=== PATIENT | female | born 1990 | race Caucasian/White ===

== ENCOUNTER 2017-09-05 17:32 | Emergency (ER) | payer OTHER ==
[2017-09-05] MEDS ORDERED: Ibuprofen TAB* 800 MG PO ONE (18:59)
[2017-09-05 19:24] LABS: Urine Appearance Clear; Urine Blood Negative (Negative); Urine Color Yellow; Urine Ketones Trace (Negative); Urine Protein Negative (Negative); Urine Specific Gravity 1.017 (1.010-1.030); Urine Urobilinogen Negative (Negative)
--- NOTE | 2017-09-05 20:12 | RAD ---
Indication: Pelvic pain. Real-time sonography of the pelvis was performed. The study was performed utilizing endovaginal technique. The uterus measures 7.7 x 3.7 x 4.7 cm. Endometrial echo measures 7.4 mm. The right ovary measures 4.6 x 2.3 x 2.9 cm. Follicles are noted in the right ovary. Involuting cyst measuring up to 2.2 cm is noted in the right ovary. The left ovary measures 3.2 x 2.1 x 1.8 cm. 1.4 cm follicle in the left ovary. Moderate amount of free fluid is noted in the cul-de-sac. IMPRESSION: Involuting cyst right ovary. Moderate amount of free fluid is noted in the cul-de-sac.
[2017-09-05 21:25] VITALS: BP 104/60
--- NOTE | 2017-09-17 14:10 | ED ---
Hector Nolan Stephanie, scribed for Dominic Durham MD on 09/05/17 at 2119 . Abdominal Pain/Female - HPI Summary HPI Summary: The pt is a 27 y/o F presenting to the ED with c/o lower abd pain that began yesterday. The pt states that the pain became sever overnight in the R side of her abdomen but reduced this morning. LKMP was 2 weeks ago. The abd pain is rated as a 5 in severity. The pt denies bleeding or vaginal discharge. The pt has a hx of ovarian cysts. - History of Current Complaint Chief Complaint: EDAbdPain Stated Complaint: ABD PAIN Time Seen by Provider: 09/05/17 18:50 Hx Obtained From: Patient Onset/Duration: Sudden Onset, Lasting Days - 1, Still Present Timing: Constant Severity Currently: Mild Pain Intensity: 4 Pain Scale Used: 0-10 Numeric Location: Discrete At: RLQ Radiates: No Aggravating Factor(s): Nothing Alleviating Factor(s): Nothing Associated Signs and Symptoms: Negative: Vaginal Bleeding, Vaginal Discharge Allergies/Adverse Reactions: Allergies Allergy/AdvReac Type Severity Reaction Status Date / Time Acetaminophen Allergy Anaphylatic Verified 09/05/17 17:51 [From Oxycodone Shock W/Acetaminophen] Oxycodone Allergy Anaphylatic Verified 09/05/17 17:51 [From Oxycodone Shock W/Acetaminophen] Sulfa Antibiotics Allergy Rash Verified 09/05/17 17:51 PMH/Surg Hx/FS Hx/Imm Hx Opthamlomology History: Denies: Hx Legally Blind EENT History: Denies: Hx Deafness - Surgical History Surgery Procedure, Year, and Place: Appendectomy Infectious Disease History: No Infectious Disease History: Denies: Traveled Outside the [place] in Last 30 Days - Family History Known Family History: Positive: Unknown - non contributory - Social History Occupation: Student Lives: Dormitory/Roommates Alcohol Use: None Substance Use Type: Reports: None Smoking Status (MU): Never Smoked Tobacco Review of Systems Negative: Fever, Chills Negative: Erythema Negative: Sore Throat Negative: Chest Pain Negative: Shortness Of Breath, Cough Positive: Abdominal Pain. Negative: Vomiting, Nausea Positive: other - Negative: vaginal bleeding, vaginal discharge. Negative: dysuria, hematuria Negative: Myalgia, Edema Negative: Rash Neurological: Other - Negative: dizziness All Other Systems Reviewed And Are Negative: Yes Physical Exam - Summary Physical Exam Summary: Constitutional: Well-developed, Well-nourished, Alert. (-) Distressed Skin: Warm, Dry HENT: Normocephalic; Atraumatic Eyes: Conjunctiva normal Neck: Musculoskeletal ROM normal neck. (-) JVD, (-) Stridor, (-) Tracheal deviation Cardio: Rhythm regular, rate normal, Heart sounds normal; Intact distal pulses; The pedal pulses are 2+ and symmetric. Radial pulses are 2+ and symmetric. (-) Murmur Pulmonary/Chest wall: Effort normal. (-) Respiratory distress, (-) Wheezes, (-) Rales Abd: Soft, (-) Distension, (-) Guarding, (-) Rebound, R adnexal tenderness Musculoskeletal: (-) Edema Lymph: (-) Cervical adenopathy Neuro: Alert, Oriented x3 Psych: Mood and affect Normal Pelvic Exam: Performed with Arenza. No cervical motion tenderness. Cervix mildly irritated. (prior paps with negative biopsy). Triage Information Reviewed: Yes Vital Signs On Initial Exam: Initial Vitals Temp Pulse Resp BP Pulse Ox 98.8 F 72 16 108/78 98 09/05/17 17:49 09/05/17 17:49 09/05/17 17:49 09/05/17 17:49 09/05/17 17:49 Vital Signs Reviewed: Yes Diagnostics - Vital Signs Vital Signs Temp Pulse Resp BP Pulse Ox 09/05/17 20:09 99.5 F 64 18 117/76 98 09/05/17 17:49 98.8 F 72 16 108/78 98 - Laboratory Lab Results: Lab Results 09/05/17 09/05/17 Range/Units 19:16 19:25 Sodium 135 (133-145) mmol/L Potassium 3.9 (3.5-5.0) mmol/L Chloride 102 (101-111) mmol/L Carbon Dioxide 25 (22-32) mmol/L Anion Gap 8 (2-11) mmol/L BUN 10 (6-24) mg/dL Creatinine 0.87 (0.51-0.95) mg/dL Est GFR ( Amer) 99.0 (>60) Est GFR (Non-Af Amer) 77.0 (>60) BUN/Creatinine Ratio 11.5 (8-20) Glucose 86 (70-100) mg/dL Calcium 9.6 (8.6-10.3) mg/dL Total Bilirubin 0.60 (0.2-1.0) mg/dL AST 13 (13-39) U/L ALT 8 (7-52) U/L Alkaline Phosphatase 50 (34-104) U/L C-Reactive Protein 1.43 (< 5.00) mg/L Total Protein 7.6 (6.4-8.9) g/dL Albumin 4.7 (3.2-5.2) g/dL Globulin 2.9 (2-4) g/dL Albumin/Globulin Ratio 1.6 (1-3) Beta HCG, Quant < 0.60 mIU/mL Urine Color Yellow Urine Appearance Clear Urine pH 5.0 (5-9) Ur Specific [place] 1.017 (1.010-1.030) Urine Protein Negative (Negative) Urine Ketones Trace H (Negative) Urine Blood Negative (Negative) Urine Nitrate Negative (Negative) Urine Bilirubin Negative (Negative) Urine Urobilinogen Negative (Negative) Ur Leukocyte Esterase Negative (Negative) Urine Glucose Negative (Negative) Result Diagrams: 09/05/17 19:25 Lab Statement: Any lab studies that have been ordered have been reviewed, and results considered in the medical decision making process. - Additional Comments Diagnostic Additional Comments: Trans-vaginal US reveals: Involuting cyst right ovary. Moderate amount of free fluid is noted in the cul-de-sac. Abdominal Pain Fem Course/Dx - Course Course Of Treatment: US significant for involuding R ovarian cyst. No concern for ovarian torsion on exam. Follow up with [facility] in 2 days. Use Ibuprofen and heating pad as needed. - Diagnoses Provider Diagnoses: Ruptured ovarian cyst Discharge - Discharge Plan Condition: Stable Disposition: HOME Patient Education Materials: Ruptured Ovarian Cyst (ED) Referrals: No Primary Care Phys,NOPCP [Primary Care Provider] - The documentation as recorded by the Hector tobar Stephanie accurately reflects the service I personally performed and the decisions made by me, Dominic Durham MD.
== END 2017-09-05 21:25 | disposition home or self-care (01) ==
LOC: ED 17:32
DX: N83.01 Follicular cyst of right ovary (principal); Z88.5 Allergy status to narcotic agent; Z88.2 Allergy status to sulfonamides
CPT/HCPCS: 36415; 76830; 80053; 81003; 84702; 86140; 87480; 87491; 87510; 87591; 99283